=== PATIENT | male | born 1940 | race Caucasian/White ===

== ENCOUNTER → 2019-02-09 | Outpatient (CLI) | payer MEDICARE, OTHER ==
[~2019-02-09] MED LIST: ASPI81EC PO; Adult Low Dose81 MG PO; Bystolic5 MG PO; DUTA.5 PO; EZET10 PO; FISH1000 PO; HYDR1TAB94 PO; LISHYD1012 PO; LISI20 PO; METF850 PO; NEBI5 PO; OMEP20ER PO; OMEPRAZOLE MAGN20 MG PO; PIOG15 PO; PRAVASTATIN PO; Pravastatin Sod40 MG PO; SAW PALMENTO PO; SULTRIDS PO; Saw Palmetto80 MG PO; TAMS.4ER PO; UBID10 PO; VITAMIN D PO; Venlafaxine HCl75 MG PO; Vitamin D2000 UNIT PO
== END | disposition home or self-care (01) ==
LOC: LAB 12:53 → LAB SHORT 12:53
DX: N39.0 Urinary tract infection, site not specified (principal)
CPT/HCPCS: 87077; 87086; 87186

== ENCOUNTER → 2019-06-10 | Outpatient (CLI) | payer MEDICARE, OTHER ==
[2019-06-12 18:06] LABS: LEAD/CREAT. RATIO 4 (0-49)
[2019-06-15 13:07] LABS: M-SPIKE, % Not Observed % (Not Observed); PROTEIN,TOTAL,URINE 6.6 mg/dL (Not Estab.)
== END | disposition home or self-care (01) ==
LOC: OLS 04:00 → LAB SHORT 04:00 → LAB FUT 06-02 12:55
PROVIDERS: Psychiatry & Neurology Neurology
DX: G62.9 Polyneuropathy, unspecified (principal)
CPT/HCPCS: 81050; 82175; 82570; 83655; 83825; 84166; 86335

== ENCOUNTER → 2019-10-01 | Outpatient (CLI) | payer MEDICARE, OTHER | END | disposition home or self-care (01) | LOC: PLD 14:33 → LAB SHORT 14:33 | DX: L82.1 Other seborrheic keratosis (principal) | CPT/HCPCS: 88305 ==

== ENCOUNTER 2020-01-27 12:10 | Inpatient (IN) | payer MEDICARE, OTHER ==
[~2020-01-27] VITALS: Ht 177.8 cm; Wt 103.6 kg
[~2020-01-27 12:10] MED LIST changes: +Glucophage PO
[2020-01-27 12:56] LABS: BASOPHILS ABSOLUTE AUTO 0.04 K/mm3 (0.00-0.23); BASOPHILS PERCENT AUTO 1 % (0-2); EOSINOPHILS ABSOLUTE AUTO 0.04 K/mm3 (0.00-0.68); EOSINOPHILS PERCENT AUTO 1 % (0-6); Hematocrit 39.2 % (37.0-53.0); Hemoglobin 12.2 g/dL (13.5-17.5); IMMATURE GRAN ABSOLUTE AUTO 0.03 K/mm3 (0.00-0.10); IMMATURE GRAN PERCENT AUTO 0 % (0-1); LYMPHOCYTES ABSOLUTE AUTO 1.74 K/mm3 (0.84-5.20); LYMPHOCYTES PERCENT AUTO 20 % (21-46); MONOCYTES ABSOLUTE AUTO 0.87 K/mm3 (0.16-1.47); MONOCYTES PERCENT AUTO 10 % (4-13); Mean Corpuscular HGB 30.2 pg (26.0-34.0); Mean Corpuscular HGB Conc 31.1 g/dL (31.5-36.5); Mean Corpuscular Volume 97 fL (80-100); Mean Platelet Volume 11.6 fL (9.1-12.4); NEUTROPHILS ABSOLUTE AUTO 5.91 K/mm3 (1.96-9.15); NEUTROPHILS PERCENT AUTO 68 % (41-73); Platelet Count 224 K/mm3 (150-400); RDW Coefficient Variation 18.4 % (11.7-14.2); RDW Standard Deviation 65.7 fL (35.1-46.3); Red Blood Cell Count 4.04 M/mm3 (4.30-5.90); White Blood Cell Count 8.63 K/mm3 (4.00-11.30)
[2020-01-27 13:17] LABS: Alanine Aminotransfer (ALT/SGP 21 U/L (12-78); Albumin, Blood 3.6 g/dL (3.4-5.0); Albumin/Globulin Ratio 0.9 (0.8-1.8); Alk Phos 67 U/L (50-136); Anion Gap 7 mmol/L (6-16); Aspartate Aminotrans (AST/SGOT 11 U/L (12-37); Bilirubin, Total 1.4 mg/dL (0.1-1.0); Blood Urea Nitrogen 30 mg/dL (8-24); Bun/Creatinine Ratio 28.8 (12.0-20.0); CO2, Blood 23 mmol/L (21-32); Calcium, Blood 8.9 mg/dL (8.5-10.1); Chloride, Blood 107 mmol/L (98-108); Creatinine, Blood 1.04 mg/dL (0.60-1.20); Globulin, Blood 3.8 g/dL (2.2-4.0); Glomerular Filtration Rate >60 (60-); Glucose, Blood 110 mg/dL (70-99); Potassium, Blood 4.6 mmol/L (3.5-5.5); Sodium, Blood 137 mmol/L (136-145); Total Protein, Blood 7.4 g/dL (6.4-8.2); Troponin I 0.211 ng/mL (0.000-0.040)
[2020-01-27] MEDS ORDERED: ASPI325EC PO (14:04)
[2020-01-27] MEDS ORDERED: GLIM4 PO (14:04)
[2020-01-27] MEDS ORDERED: POTASSIUM PO (14:05)
[2020-01-27] MEDS ORDERED: FURO40 PO (14:05)
[2020-01-27] MEDS ORDERED: COQ-10100 MG PO (14:06)
[2020-01-27] MEDS ORDERED: GINKGO BILOBA120 MG PO (14:12)
[2020-01-27] MEDS ORDERED: GLUCOSAMINE PO (14:13)
[2020-01-27] MEDS ORDERED: Saw Palmetto160 MG PO (14:14)
[2020-01-27] MEDS ORDERED: PIOG15 PO (14:14)
[2020-01-27] MEDS ORDERED: Glucophage 850850 MG PO ×2 (15:30→15:31)
--- NOTE | 2020-01-27 18:49 | NUR ---
SHIFT SUMMARY: PATIENT ARRIVED AT 1708 FROM ED. A&O X 4, PLEASANT. HAS PATRICK AND TACHYPNEIC AT REST, 95% ON RA. EDUCATED PT ABOUT CALL LIGHT, RAPID RESPONSE, NURSE ROUNDING, BEDSIDE REPORT, FALL PRECAUTIONS. VSS, DENIES PAIN. PLAN IS CARDIAC ECHO TOMORROW, DIURESIS.
--- NOTE | 2020-01-27 21:30 | NUR ---
HOSPITALIST CONTACT: CALL TO HOSPITALISTELENI DUE TO PT HEART RHYTHM CHANGES. PER TELE RUBY ON RAILS ENGINEER, PT'S UNDERLYING RHYTHM IS 1ST DEGREE HB. 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 RATE AVERAGES 60-70S BUT DROPPED TO 42 DURING THE 2ND DEGREE TYPE 1 RHYTHM. PT REPORTS FEELING INTERMITTENTLY SOB. RECEIVED ORDER FOR 12 LEAD EKG.
[2020-01-27 21:54] LABS: Anion Gap 8 mmol/L (6-16); Blood Urea Nitrogen 33 mg/dL (8-24); Bun/Creatinine Ratio 28.9 (12.0-20.0); CO2, Blood 25 mmol/L (21-32); Calcium, Blood 8.9 mg/dL (8.5-10.1); Chloride, Blood 107 mmol/L (98-108); Creatinine, Blood 1.14 mg/dL (0.60-1.20); Glomerular Filtration Rate >60 (60-); Glucose, Blood 129 mg/dL (70-99); Magnesium, Blood 1.7 mg/dL (1.6-2.4); Potassium, Blood 4.1 mmol/L (3.5-5.5); Sodium, Blood 140 mmol/L (136-145)
--- NOTE | 2020-01-28 01:49 | NUR ---
CALL TO HOSPITALIST: PT HR DROPPING TO LOW 30'S FOR 15-20 SECOND INCREMENTS PER TELE ODD JOB WORKER. PT HAS REMAINED ASLEEP DURING THESE EPISODES. INFORMED DR. WADE OF THIS INFO, STATES TO USE PRN ATROPINE ONLY IF PT PULSE IS <35 AND HE WAKES UP W/SYMPTOMS. WILL CONT TO MONITOR.
[2020-01-28 06:28] LABS: BASOPHILS ABSOLUTE AUTO 0.04 K/mm3 (0.00-0.23); BASOPHILS PERCENT AUTO 1 % (0-2); EOSINOPHILS ABSOLUTE AUTO 0.05 K/mm3 (0.00-0.68); EOSINOPHILS PERCENT AUTO 1 % (0-6); Hematocrit 39.5 % (37.0-53.0); IMMATURE GRAN ABSOLUTE AUTO 0.03 K/mm3 (0.00-0.10); IMMATURE GRAN PERCENT AUTO 0 % (0-1); LYMPHOCYTES ABSOLUTE AUTO 1.65 K/mm3 (0.84-5.20); LYMPHOCYTES PERCENT AUTO 20 % (21-46); MONOCYTES ABSOLUTE AUTO 0.95 K/mm3 (0.16-1.47); MONOCYTES PERCENT AUTO 12 % (4-13); Mean Corpuscular HGB 29.6 pg (26.0-34.0); Mean Corpuscular HGB Conc 30.4 g/dL (31.5-36.5); Mean Corpuscular Volume 97 fL (80-100); Mean Platelet Volume 11.7 fL (9.1-12.4); NEUTROPHILS ABSOLUTE AUTO 5.38 K/mm3 (1.96-9.15); NEUTROPHILS PERCENT AUTO 66 % (41-73); Platelet Count 198 K/mm3 (150-400); RDW Coefficient Variation 18.5 % (11.7-14.2); RDW Standard Deviation 66.2 fL (35.1-46.3); Red Blood Cell Count 4.06 M/mm3 (4.30-5.90)
--- NOTE | 2020-01-28 06:36 | NUR ---
SHIFT SUMMARY: AAOX4. COMMUNICATING NEEDS. CALLS FOR ASSIST. STANDS AT BEDSIDE VOID. EXERTIONAL DYSPNEA. LSCTA W/DIM BASES. NO COUGH. PT WOKE UP DURING THE NIGHT FEELING VERY SOB, CALL PLACED TO TELE ADOLESCENT SPECIALIST WHO REPORTED NO CHANGES IN PT RHYTHM AT THE TIME OR LEADING UP TO EVENT. 02 INCREASED TO 3L. PT REPORTS SOB FEELS IMPROVED. HR HAS REMAINED IN THE 50S FOR MUCH OF THE NIGHT. PT WEARING PACER PADS PROACTIVELY. +4 BLE EDEMA. DENIES CHEST PAIN. WILL CONT TO MONITOR.
[2020-01-28 07:04] LABS: Anion Gap 8 mmol/L (6-16); Blood Urea Nitrogen 33 mg/dL (8-24); Bun/Creatinine Ratio 29.5 (12.0-20.0); CO2, Blood 24 mmol/L (21-32); Chloride, Blood 108 mmol/L (98-108); Creatinine, Blood 1.12 mg/dL (0.60-1.20); Glomerular Filtration Rate >60 (60-); Glucose, Blood 110 mg/dL (70-99); Potassium, Blood 4.2 mmol/L (3.5-5.5); Sodium, Blood 140 mmol/L (136-145)
--- NOTE | 2020-01-28 13:04 | NUR ---
Echocardiogram completed.
--- NOTE | 2020-01-28 15:35 | NUR ---
Spiritual care visit conducted. Patient is sitting on a chair and alert. Patient's spouse, Sri, is bedside. Patient tells me about his medical history, the of his former spouse and aliya patient has his current . Patient tells me about his Spiritism Reanna background and about his plan of care moving forward. I listen empathically, normalize patient's experience and provide companionship and prayer. Patient responds well and shows signs of an elevated mood. I will continue to remain available to patient and family.
--- NOTE | 2020-01-28 17:24 | NUR ---
SHIFT SUMMARY PATIENT DENIES PAIN AND NAUSEA. PATIENT HAS BECOME LESS DYSPNEIC OVER THE COURSE OF SHIFT. REPORTS NO SHORTNESS OF BREATH THIS EVENING. PATIENT MAINTAINING OXYGEN SATURATION ABOVE PATIENT 95% ON 2L NC. PATIENT WORKED WITH PT, UP SBA W/FWW. VISITED TODAY. ECHO DONE TODAY. UP IN CHAIR FOR MEALS. CALL LIGHT IN REACH.
[2020-01-29 06:29] LABS: Bun/Creatinine Ratio 26.6 (12.0-20.0); Calcium, Blood 9.3 mg/dL (8.5-10.1); Creatinine, Blood 1.24 mg/dL (0.60-1.20); Magnesium, Blood 1.7 mg/dL (1.6-2.4); Potassium, Blood 3.6 mmol/L (3.5-5.5)
--- NOTE | 2020-01-29 07:50 | NUR ---
SHIFT SUMMARY: VSS. AFEB. AA0X4. ABLE TO COMMUNICATE NEEDS. PT REPORTING IMPROVED SOB, 02 DECREASED FROM 3L TO 2L, PT PAULINE WELL. CONT W/EXERTIONAL DYSPNEA. BREATHING AT REST IMPROVED, REGULAR, NON-LABORED. 3+ PITTING EDEMA TO BLE. ENCOURAGED ELEVATION OF LE. PER TELE TOOL DISPATCHER: 2ND DEGREE HB TYPE 1, PVC'S, HEART RATE 59.
--- NOTE | 2020-01-29 17:17 | NUR ---
SHIFT SUMMARY PATIENT DENIES PAIN, NAUSEA, AND SHORTNESS OF BREATH. PATIENT UP SBA W/FWW. WALKED IN HALLWAY WITH PT TODAY. UP IN CHAIR MOST OF SHIFT. ENCOURAGED TO ELEVATE LEGS. NPO AT MIDNIGHT FOR CARDIAC CATHETERIZATION. CALL LIGHT IN REACH
--- NOTE | 2020-01-30 03:37 | NUR ---
SHIFT SUMMARY PATIENT HAD NO ACUTE CHANGES OBSERVED. AXOX 3 AND SBA W/FWW TO BSC. USES URINAL AT BEDSIDE. PIV REMAINS INTACT. BEVELER REPORTS NSR 82 W/1ST DEGREE HB AND BBB. ON 2L O2 NC. TAKES MEDICATION WHOLE X TWO AT A TIME. VSS/AFEBRILE. DENIES PAIN, SOB, AND N/V. NPO>MIDNIGHT FOR CARDIAC CATHERIZATION. CALL LIGHT IN REACH. BED IN LOWEST POSITION. WILL CONTINUE TO MONITOR UNTIL DAY SHIFT NURSE ASSUMES CARE.
[2020-01-30 06:17] LABS: Anion Gap 9 mmol/L (6-16); Blood Urea Nitrogen 34 mg/dL (8-24); Bun/Creatinine Ratio 28.6 (12.0-20.0); CO2, Blood 30 mmol/L (21-32); Calcium, Blood 9.4 mg/dL (8.5-10.1); Chloride, Blood 96 mmol/L (98-108); Creatinine, Blood 1.19 mg/dL (0.60-1.20); Glomerular Filtration Rate >60 (60-); Glucose, Blood 113 mg/dL (70-99); Magnesium, Blood 1.7 mg/dL (1.6-2.4); Potassium, Blood 3.7 mmol/L (3.5-5.5); Sodium, Blood 135 mmol/L (136-145)
--- NOTE | 2020-01-30 10:58 | NUR ---
ALERT. ORIENTED. DENIES PAIN THIS A.M. NPO EXCEPT MEDS. LEFT FOR HOOP RIVETING MACHINE OPERATOR AT ABOUT 1051. IN W/C.
--- NOTE | 2020-01-30 13:30 | NUR ---
Patient arrived via gurney from [facility] from 327 post cath. He was ableto site at bedside post arrival to use urinal with 250 ml light jeanna urine. He has left Tr Band in place c/d/i and no signs of bleeding or hematoma. He also has clear op site to right brachial access that was removed. Patient called is and is having her come in. He is on RA and sats mid 90%'s on RA. He has no fluids infusing.
--- NOTE | 2020-01-30 13:47 | NUR ---
REPORT GIVEN TO OLGA LOPEZ
--- NOTE | 2020-01-30 17:30 | NUR ---
Tr Band is off and let air out over theh last few hours. Left TR band site C/D/I and no swelling or oozing. He is siting up in bed eating diner and at bedside. dr martinez and Dr Murray by to see patient and will be discharged in am and follow up with Dr magallanes and go for valve replacement and bypass and patient aware. He is mostly idependent in room . Ra and sats mid 90%'s and doing well.
[2020-01-31 05:11] LABS: Anion Gap 8 mmol/L (6-16); Blood Urea Nitrogen 30 mg/dL (8-24); Bun/Creatinine Ratio 26.3 (12.0-20.0); CO2, Blood 30 mmol/L (21-32); Calcium, Blood 9.1 mg/dL (8.5-10.1); Chloride, Blood 97 mmol/L (98-108); Creatinine, Blood 1.14 mg/dL (0.60-1.20); Glomerular Filtration Rate >60 (60-); Glucose, Blood 124 mg/dL (70-99); Magnesium, Blood 1.9 mg/dL (1.6-2.4); Potassium, Blood 3.9 mmol/L (3.5-5.5); Sodium, Blood 135 mmol/L (136-145)
--- NOTE | 2020-01-31 06:28 | NUR ---
SHIFT SUMMARY PATIENT PLEASENT AND COOPERATIVE THROUGHOUT THE NIGHT. PATIENT STATED THAT HE NAPPED ON AND OFF LAST NIGHT. PATIENT DENIED ANY PAIN PATIENT'S ACCESS SITES TO RIGHT BRACHIAL AND LEFT WRIST APPEAR TO BE UNCHANGED FROM INITIAL ASSESSMENT. PATIENT REPORTS HE IS READY TO GO HOME TODAY SO THAT HE CAN GET HIS VALVE REPLACEMENT PROCEDURE SCHEDULED. PATIENT CURRENTLY APPEARS TO BE ASLEEP. WILL CONTINUE TO MONITOR PATIENT AND REPORT TO ONCOMING RN.
[2020-01-31] MEDS ORDERED: MAGNESIUM OXID500 MG PO (10:58)
[2020-01-31] MEDS ORDERED: NITR.4SL SL (11:07)
[2020-01-31] MEDS ORDERED: FURO40 PO (11:09)
[2020-01-31] MEDS ORDERED: POTCHL20ER PO (11:09)
--- NOTE | 2020-01-31 13:31 | NUR ---
D/C TO HOME WITH . D/C INSTRUCTIONS PROVIDED AND EXPLAINED TO BOTH PT & HIS . THEY BOTH STATED UNDERSTANDING. RX CALLED TO [facility] PER PT REQUEST. IV D/C'D WNL, VSS, RESP MUNLABORED. PT IS ABLT TO AMBULATE GREATER THAN 50 FT W/O BECOMING SOB, DENIES CP. PT ENC TO F/ [facility] FOR ANY PROBLEMS OR CONCERNS.
[2020-02-09] MEDS ORDERED: CO Q10100 MG PO (15:59)
[2020-02-09] MEDS ORDERED: Flomax0.4 MG PO (15:59)
[2020-02-11] MEDS ORDERED: ASPI81CH PO (11:35)
[2020-02-11] MEDS ORDERED: ATOR80 PO (11:36)
[2020-02-11] MEDS ORDERED: FURO40 PO (11:36)
[2020-02-11] MEDS ORDERED: CLOP75 PO (11:37)
== END 2020-01-31 13:04 | disposition home or self-care (01) | DRG 287 ==
LOC: ER 12:10 → MEDS 15:43 → PCU 01-30 13:10
PROVIDERS: Nurse Practitioner Acute Care; Physician Assistant; ADMIT Internal Medicine
PROC: 4A023N6 Measurement of Cardiac Sampling and Pressure, Right Heart, Percutaneous Approach (ICD-10-PCS; principal; 2020-01-30)
PROC: B2111ZZ Fluoroscopy of Multiple Coronary Arteries using Low Osmolar Contrast (ICD-10-PCS; 2020-01-30)
PROC: 4A033BC Measurement of Arterial Pressure, Coronary, Percutaneous Approach (ICD-10-PCS; 2020-01-30)
PROC: 4A1239Z Monitoring of Cardiac Output, Percutaneous Approach (ICD-10-PCS; 2020-01-30)
PROC: B2121ZZ Fluoroscopy of Single Coronary Artery Bypass Graft using Low Osmolar Contrast (ICD-10-PCS; 2020-01-30)
DX: I11.0 Hypertensive heart disease with heart failure (principal); Z79.82 Long term (current) use of aspirin; I50.33 Acute on chronic diastolic (congestive) heart failure; E11.9 Type 2 diabetes mellitus without complications; Z79.84 Long term (current) use of oral hypoglycemic drugs; Z95.1 Presence of aortocoronary bypass graft; Z95.2 Presence of prosthetic heart valve; Z96.641 Presence of right artificial hip joint; Z96.652 Presence of left artificial knee joint; I44.1 Atrioventricular block, second degree; E78.5 Hyperlipidemia, unspecified; Z86.73 Personal history of transient ischemic attack (TIA), and cerebral infarction without residual deficits; N40.0 Benign prostatic hyperplasia without lower urinary tract symptoms; Z68.34 Body mass index [BMI] 34.0-34.9, adult; E66.9 Obesity, unspecified; I25.10 Atherosclerotic heart disease of native coronary artery without angina pectoris; I77.1 Stricture of artery; E87.6 Hypokalemia; E83.42 Hypomagnesemia
CPT/HCPCS: 36415; 71045; 71046; 76937; 80048; 80053; 82947; 83735; 83880; 84484; 85025; 85347; 93005; 93010; 93306; 93308; 93321; 93457; 93571; 96374; 97162; 97165; 97530; 97535; 99152; 99153; 99285-25; A9270; A9270-GY; C1769; C1887; C1894; J1644; J1650; J1815; J1940; J2250; J3010; J7030; Q9967

== ENCOUNTER 2020-02-09 10:00 | Inpatient (IN) | payer MEDICARE, OTHER ==
[~2020-02-09] VITALS: Ht 177.8 cm; Wt 105.6 kg
[~2020-02-09 10:00] MED LIST changes: +ASPI325EC PO; +COQ-10100 MG PO; +FURO40 PO; +GINKGO BILOBA120 MG PO; +GLIM4 PO; +GLUCOSAMINE PO; +Glucophage 850850 MG PO; +MAGNESIUM OXID500 MG PO; +NITR.4SL SL; +POTASSIUM PO; +POTCHL20ER PO; +Saw Palmetto160 MG PO
[2020-02-09 10:50] LABS: BASOPHILS ABSOLUTE AUTO 0.03 K/mm3 (0.00-0.23); BASOPHILS PERCENT AUTO 0 % (0-2); EOSINOPHILS ABSOLUTE AUTO 0.02 K/mm3 (0.00-0.68); EOSINOPHILS PERCENT AUTO 0 % (0-6); Hematocrit 39.9 % (37.0-53.0); Hemoglobin 12.8 g/dL (13.5-17.5); IMMATURE GRAN ABSOLUTE AUTO 0.02 K/mm3 (0.00-0.10); IMMATURE GRAN PERCENT AUTO 0 % (0-1); LYMPHOCYTES ABSOLUTE AUTO 1.62 K/mm3 (0.84-5.20); LYMPHOCYTES PERCENT AUTO 22 % (21-46); MONOCYTES ABSOLUTE AUTO 0.59 K/mm3 (0.16-1.47); MONOCYTES PERCENT AUTO 8 % (4-13); Mean Corpuscular HGB 31.3 pg (26.0-34.0); Mean Corpuscular HGB Conc 32.1 g/dL (31.5-36.5); Mean Corpuscular Volume 98 fL (80-100); NEUTROPHILS ABSOLUTE AUTO 5.26 K/mm3 (1.96-9.15); NEUTROPHILS PERCENT AUTO 70 % (41-73); Platelet Count 196 K/mm3 (150-400); RDW Standard Deviation 64.3 fL (35.1-46.3); Red Blood Cell Count 4.09 M/mm3 (4.30-5.90); White Blood Cell Count 7.54 K/mm3 (4.00-11.30)
[2020-02-09 11:10] LABS: Albumin, Blood 3.7 g/dL (3.4-5.0); Albumin/Globulin Ratio 0.9 (0.8-1.8); Bilirubin, Total 1.3 mg/dL (0.1-1.0); Bun/Creatinine Ratio 19.9 (12.0-20.0); Calcium, Blood 8.8 mg/dL (8.5-10.1); Creatinine, Blood 1.36 mg/dL (0.60-1.20); Globulin, Blood 3.9 g/dL (2.2-4.0); Potassium, Blood 4.8 mmol/L (3.5-5.5); Total Protein, Blood 7.6 g/dL (6.4-8.2)
[2020-02-09 11:22] LABS: Troponin I 1.44 ng/mL (0.000-0.040)
[2020-02-09 14:03] LABS: International Normalized Ratio 1.05; Prothrombin Time Results 11.2 Sec (9.7-11.5)
--- NOTE | 2020-02-09 15:14 | NUR ---
Echocardiogram completed.
[2020-02-09] MEDS ORDERED: CO Q10100 MG PO ×2 (15:59)
[2020-02-09] MEDS ORDERED: Flomax0.4 MG PO ×2 (15:59)
[2020-02-09 17:14] LABS: Source, Urine Clean Catch
[2020-02-09 17:17] LABS: Appearance, Urine Clear (Clear); Bilirubin, Urine Neg (Neg); Blood, Urine Neg (Neg); Color, Urine Yellow (P-Yellow); Glucose Qualitative, Urine Neg (Neg); Ketones, Urine 1+ (Neg); Leukocyte Esterase, Urine Neg (Neg); Nitrite, Urine Neg (Neg); Protein, Urine 1+ (Neg); Urobilinogen, Urine NORM (Normal)
--- NOTE | 2020-02-09 19:14 | NUR ---
ADMIT NOTE. RECEIVED REPORT FROM JOHN APPLE IN ED. PT TO ROOM AT 1535; SBA TO BED. PT ORIENTED TO ROOM AND CALL LIGHT; EDUCATED ON FALL RISK. PT REPORTS FEELING WEAK AND DIZZINES THIS AM AND HAVING NO URINE OUTPUT OVERNIGHT AFTER TAKING LASIX. PT A&Ox4; CALM AND COOPERATIVE WITH CARE. PT SBA TO BATHROOM. PT DENIES PAIN, CHEST PAIN/PRESSURE, NUMBNESS/TINGLING, NAUSEA, OR DIZZINESS. PT STARTED ON HEPARIN GTT PER ORDERS. CLARIFIED ORDER FOR NPO WITH DR DALEY, NEW ORDER TO FEED PT AND HOLD NPO AT MIDNIGHT FOR PROCEDURE TOMORROW. VSS. NO OTHER ACUTE CHANGES NOTED DURING SHIFT. REPORT GIVEN TO ONCOMING RN.
[2020-02-10 03:42] LABS: BASOPHILS ABSOLUTE AUTO 0.03 K/mm3 (0.00-0.23); BASOPHILS PERCENT AUTO 0 % (0-2); EOSINOPHILS ABSOLUTE AUTO 0.06 K/mm3 (0.00-0.68); EOSINOPHILS PERCENT AUTO 1 % (0-6); Hematocrit 37.1 % (37.0-53.0); Hemoglobin 11.7 g/dL (13.5-17.5); IMMATURE GRAN ABSOLUTE AUTO 0.03 K/mm3 (0.00-0.10); IMMATURE GRAN PERCENT AUTO 0 % (0-1); LYMPHOCYTES ABSOLUTE AUTO 2.12 K/mm3 (0.84-5.20); LYMPHOCYTES PERCENT AUTO 25 % (21-46); MONOCYTES PERCENT AUTO 13 % (4-13); Mean Corpuscular HGB 30.6 pg (26.0-34.0); Mean Corpuscular HGB Conc 31.5 g/dL (31.5-36.5); Mean Corpuscular Volume 97 fL (80-100); Mean Platelet Volume 12.2 fL (9.1-12.4); NEUTROPHILS PERCENT AUTO 61 % (41-73); Platelet Count 184 K/mm3 (150-400); RDW Standard Deviation 63.7 fL (35.1-46.3); Red Blood Cell Count 3.82 M/mm3 (4.30-5.90); White Blood Cell Count 8.54 K/mm3 (4.00-11.30)
[2020-02-10 04:03] LABS: Anion Gap 8 mmol/L (6-16); Blood Urea Nitrogen 28 mg/dL (8-24); Bun/Creatinine Ratio 25.5 (12.0-20.0); CO2, Blood 23 mmol/L (21-32); Calcium, Blood 8.6 mg/dL (8.5-10.1); Chloride, Blood 99 mmol/L (98-108); Glomerular Filtration Rate >60 (60-); Glucose, Blood 109 mg/dL (70-99); Potassium, Blood 4.1 mmol/L (3.5-5.5); Sodium, Blood 130 mmol/L (136-145)
--- NOTE | 2020-02-10 06:04 | NUR ---
patient initially admitted for weakness dizziness and decreased urine output. Patient's urine output improved and now is within normal limits. Current diagnosis of NSTEMI. Patient is on heparin dril with possible plans for PCI today. Patient vital signs stable, no complaints of chest pain, chest pressure, shortness of breath. No acute events overnight.
--- NOTE | 2020-02-10 07:30 | NUR ---
ASSUMPTION OF CARE PT SITTING UP IN CHAIR THIS AM; A&O; CALM AND COOPERATIVE WITH CARE. NO DISTRESS NOTED; DENIES PAIN, CHEST PAIN/PRESSURE, SOB AND NAUSEA. VSS. PT TAKEN TO OIL FIELD TECHNICIAN AT 0726; SHIFT ASSESSMENT NOT COMPLETED PRIOR TO LEAVING FOR OIL FIELD TECHNICIAN.
--- NOTE | 2020-02-10 10:23 | NUR ---
Transfer/Warren of Care: Patient arrived to unit at approx 0959hr, from labour market economist, accompanied by labour market economist RN. Patient alert and oriented x4, denies pain, discomfort, chest pressure, dyspnea, or SOB. VSS, spO2-98% on RA, appears calm and comfortable. Rt femoral sheath in place, dressing C/D/I, no s/s of bleeding or hematoma. Next PTT scheduled for 1100hr, plan to remove sheath if PTT less than 40 and systolic BP remains below 170. Patient lying flat/supine in bed. Instructed to remain lying flat and to not lift head or right leg. Peripheral IV to lt arm in place, patent and intact. Using urinal in bed with assistance for placement, without difficulty. Urine light yellow and clear. Call light in reach, makes needs known. Dr. Long to room shortly after arrival to unit. Received instructions from Dr. Long that she would be placing new orders r/t diet, d/c of heparin gtt, new medications, etc. Awaiting new orders at this time. Will continue to monitor.
--- NOTE | 2020-02-10 13:08 | NUR ---
Spiritual care visit conducted. Patient is lying in bed and alert. Patient tells me about his recent stent installation and about his upcoming heart valve replacement. Patient talks about the of his prior , about the wonderful attributes of his current and about his many surgeries. Patient also explains about his restoration tradition (Sabianist) and patient's spouse, Sri's, restoration tradition (Yazidi) and how they honor each other and support each other's beliefs. I listen empathically and provide companionship and prayer. I will continue to remain available to patient and family.
--- NOTE | 2020-02-10 18:03 | NUR ---
Shift Summary: No significant changes throughout shift. Sheath to rt femoral access site removed at 1530hr, following repeat PTT lab draws, last value below 40. Direct pressure held to rt femoral access site for 20min following removal of sheath. Site remains stable, no s/s of bleeding or hematoma noted. Distal limb to access site remains WNL. VSS, patient continues to deny pain, discomfort, SOB, or dyspnea. Tolerating PO fluids and food without difficulty. Call light in reach, makes needs known. Will continue to monitor until report to NOC shift RN.
--- NOTE | 2020-02-10 19:38 | NUR ---
ASSUMED PT CARE FROM JOHN ULLOA AT 1915 PT RESTING IN BED. ALERT AND ORIENTED AND ABLE TO MAKE NEEDS KNOWN. REQUESTED TO USE THE BATHROOM. PT WANTED TO SIT ON THE BSC INSTEAD OF USING THE URINAL; TWO PERSON ASSIST FOR SAFETY. PT IS VERY WEAK AND REQUIRES FREQUENT VERBAL CUES. RIGHT FEMORAL SITE IS SOFT, NON-TENDER WITH NO OOZING OR HEMATOMA NOTED. VSS, SEE FLOWSHEET. 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 DENIES CHEST PAIN AT THIS TIME. PT REQUESTED TO SIT UP IN CHAIR D/T BED BEING UNCOMFORTABLE. ASSISTED TO CHAIR. CALLED FOR AN UPDATE AND THEN WAS TRANSFERRED INTO PT'S ROOM. AWARE THAT PT MAY TRANSFER TO MEDICAL FLOOR THIS SHIFT AND DOESN'T REQUEST A PHONE CALL IF THAT HAPPENS. CALL LIGHT IS WITHIN REACH; PT ABLE TO MAKE NEEDS KNOWN AT THIS TIME.
--- NOTE | 2020-02-11 04:21 | NUR ---
END OF SHIFT SUMMARY NO SIGNIFICANT CHANGES T/O SHIFT. PT HAS REMAINED ALERT AND ORIENTED AND ABLE TO MAKE NEEDS KNOWN. DENIES CHEST PAIN. VSS, SEE FLOWSHEET. RIGHT FEMORAL SITE HAS REMAINED STABLE WITH NO OOZING OR SIGNS OF HEMATOMA NOTED. SURROUNDING TISSUE IS RED, WHICH APPEARS RELATED TO IRRITATION SKIN IS COOL TO THE TOUCH AND NOT HOT. DISTAL PULSES REMAIN PALPABLE. PT HAS BEEN UP TO VOID MULTIPLE TIMES T/O NIGHT, WELL CHANGING FROM BED TO CHAIR AND BACK TO BED. CALL LIGHT WITHIN REACH AND PT IS ABLE TO MAKE NEEDS KNOWN. WILL CONTINUE TO MONITOR UNTIL REPORT IS HANDED OFF TO ONCOMING RN.
--- NOTE | 2020-02-11 08:44 | NUR ---
Bland of Care: Care assumed at 0700hr. Patient alert and oriented x4. Transferred to recliner this morning for breakfast, stand-by assist without difficulty. Denies pain, discomfort, SOB, or dyspnea. VSS, spO2-96-98% on RA. Rt femoral access site wnl, no s/s of bleeding or hematoma noted. Distal limb to arterial access site wnl. Peripheral IV x1 patent and intact. Good apatite this morning, tolerating PO fluids and food without difficulty. Dr. Nugent in to see patient early this shift. Received verbal permission to D/c patient home, awaiting arrival of hospitalist at this time. Call light in reach, makes needs known. Will continue to monitor.
[2020-02-11] MEDS ORDERED: ASPI81CH PO ×2 (11:35)
[2020-02-11] MEDS ORDERED: FURO40 PO ×2 (11:36)
[2020-02-11] MEDS ORDERED: ATOR80 PO ×2 (11:36)
[2020-02-11] MEDS ORDERED: CLOP75 PO ×2 (11:37)
--- NOTE | 2020-02-11 13:45 | NUR ---
Discharge: Received orders per Dr. Thompson to discharge patient home. discharge instructions and medications reviewed with patient and his . Verbalized understanding of instructions, all questions answered to patient's satisfaction. Belongings sent home with patient. Transferred via w/c to 's vehicle without difficulty. Left facility at 1337hr. IV removed to lt forearm before leaving unit.
== END 2020-02-11 13:40 | disposition home or self-care (01) | DRG 247 ==
LOC: ER 10:00 → PCU 12:43 → ICUE 02-10 09:31
PROVIDERS: Physician Assistant; ADMIT Hospitalist
PROC: B2111ZZ Fluoroscopy of Multiple Coronary Arteries using Low Osmolar Contrast (ICD-10-PCS; principal; 2020-02-10)
PROC: 4A023N7 Measurement of Cardiac Sampling and Pressure, Left Heart, Percutaneous Approach (ICD-10-PCS; 2020-02-10)
PROC: 027035Z Dilation of Coronary Artery, One Artery with Two Drug-eluting Intraluminal Devices, Percutaneous Approach (ICD-10-PCS; 2020-02-10)
PROC: B240ZZ3 Ultrasonography of Single Coronary Artery, Intravascular (ICD-10-PCS; 2020-02-10)
DX: I21.4 Non-ST elevation (NSTEMI) myocardial infarction (principal); I50.32 Chronic diastolic (congestive) heart failure; N17.9 Acute kidney failure, unspecified; Z79.82 Long term (current) use of aspirin; Z79.84 Long term (current) use of oral hypoglycemic drugs; I35.0 Nonrheumatic aortic (valve) stenosis; Z96.651 Presence of right artificial knee joint; Z96.641 Presence of right artificial hip joint; Z95.1 Presence of aortocoronary bypass graft; I25.10 Atherosclerotic heart disease of native coronary artery without angina pectoris; I95.9 Hypotension, unspecified; I44.30 Unspecified atrioventricular block; E66.9 Obesity, unspecified; Z68.31 Body mass index [BMI] 31.0-31.9, adult; I77.1 Stricture of artery
CPT/HCPCS: 36415; 51798; 71046; 76937; 80048; 80053; 82947; 83735; 83880; 84484; 85025; 85347; 85610; 85730; 92921; 92978; 93005; 93010; 93308; 93321; 93454; 96360; 99152; 99153; 99285-25; A9270-GY; C1725; C1753; C1769; C1874; C1887; C9600; J1644; J1940; J2250; J3010; J7030; Q9967

== ENCOUNTER 2020-02-13 12:32 | Emergency (ER) | payer MEDICARE, OTHER ==
[~2020-02-13] VITALS: Ht 177.8 cm; Wt 99.3 kg
[~2020-02-13 12:32] MED LIST changes: +ASPI81CH PO; +ATOR80 PO; +CLOP75 PO; +CO Q10100 MG PO; +Flomax0.4 MG PO
[2020-02-13 13:04] LABS: BASOPHILS ABSOLUTE AUTO 0.03 K/mm3 (0.00-0.23); BASOPHILS PERCENT AUTO 0 % (0-2); EOSINOPHILS ABSOLUTE AUTO 0.07 K/mm3 (0.00-0.68); EOSINOPHILS PERCENT AUTO 1 % (0-6); Hematocrit 39.8 % (37.0-53.0); Hemoglobin 12.4 g/dL (13.5-17.5); IMMATURE GRAN ABSOLUTE AUTO 0.02 K/mm3 (0.00-0.10); IMMATURE GRAN PERCENT AUTO 0 % (0-1); LYMPHOCYTES ABSOLUTE AUTO 1.73 K/mm3 (0.84-5.20); LYMPHOCYTES PERCENT AUTO 23 % (21-46); MONOCYTES ABSOLUTE AUTO 0.69 K/mm3 (0.16-1.47); MONOCYTES PERCENT AUTO 9 % (4-13); Mean Corpuscular HGB 30.6 pg (26.0-34.0); Mean Corpuscular HGB Conc 31.2 g/dL (31.5-36.5); Mean Corpuscular Volume 98 fL (80-100); Mean Platelet Volume 12.3 fL (9.1-12.4); NEUTROPHILS ABSOLUTE AUTO 5.12 K/mm3 (1.96-9.15); NEUTROPHILS PERCENT AUTO 67 % (41-73); Platelet Count 209 K/mm3 (150-400); RDW Coefficient Variation 17.8 % (11.7-14.2); RDW Standard Deviation 63.5 fL (35.1-46.3); Red Blood Cell Count 4.05 M/mm3 (4.30-5.90); White Blood Cell Count 7.66 K/mm3 (4.00-11.30)
[2020-02-13 13:16] LABS: International Normalized Ratio 1.06; Prothrombin Time Results 11.3 Sec (9.7-11.5)
[2020-02-13 13:23] LABS: Alanine Aminotransfer (ALT/SGP 30 U/L (12-78); Albumin, Blood 3.6 g/dL (3.4-5.0); Albumin/Globulin Ratio 0.9 (0.8-1.8); Alk Phos 86 U/L (50-136); Anion Gap 7 mmol/L (6-16); Aspartate Aminotrans (AST/SGOT 26 U/L (12-37); Bilirubin, Total 1.3 mg/dL (0.1-1.0); Blood Urea Nitrogen 18 mg/dL (8-24); Bun/Creatinine Ratio 18.5 (12.0-20.0); CO2, Blood 24 mmol/L (21-32); Chloride, Blood 105 mmol/L (98-108); Creatinine, Blood 0.97 mg/dL (0.60-1.20); Globulin, Blood 3.9 g/dL (2.2-4.0); Glomerular Filtration Rate >60 (60-); Glucose, Blood 131 mg/dL (70-99); Potassium, Blood 4.3 mmol/L (3.5-5.5); Sodium, Blood 136 mmol/L (136-145); Total Protein, Blood 7.5 g/dL (6.4-8.2)
== END 2020-02-13 15:26 | disposition home or self-care (01) ==
LOC: ER 12:32
PROVIDERS: Emergency Medicine
DX: R04.0 Epistaxis (principal); Z79.82 Long term (current) use of aspirin; Z79.899 Other long term (current) drug therapy; Z79.84 Long term (current) use of oral hypoglycemic drugs; I10 Essential (primary) hypertension; E11.9 Type 2 diabetes mellitus without complications; I25.810 Atherosclerosis of coronary artery bypass graft(s) without angina pectoris; E78.5 Hyperlipidemia, unspecified
CPT/HCPCS: 30901; 36415; 80053; 85025; 85610; 99283-25

== ENCOUNTER 2020-02-20 21:24 | Inpatient (IN) | payer MEDICARE, OTHER ==
[~2020-02-20] VITALS: Ht 177.8 cm; Wt 100.4 kg
[2020-02-20 21:47] LABS: BASOPHILS ABSOLUTE AUTO 0.03 K/mm3 (0.00-0.23); BASOPHILS PERCENT AUTO 0 % (0-2); EOSINOPHILS ABSOLUTE AUTO 0.04 K/mm3 (0.00-0.68); EOSINOPHILS PERCENT AUTO 1 % (0-6); Hematocrit 36.3 % (37.0-53.0); Hemoglobin 11.5 g/dL (13.5-17.5); IMMATURE GRAN ABSOLUTE AUTO 0.02 K/mm3 (0.00-0.10); IMMATURE GRAN PERCENT AUTO 0 % (0-1); LYMPHOCYTES PERCENT AUTO 22 % (21-46); MONOCYTES PERCENT AUTO 9 % (4-13); Mean Corpuscular HGB Conc 31.7 g/dL (31.5-36.5); Mean Corpuscular Volume 98 fL (80-100); Mean Platelet Volume 11.7 fL (9.1-12.4); NEUTROPHILS ABSOLUTE AUTO 5.65 K/mm3 (1.96-9.15); NEUTROPHILS PERCENT AUTO 69 % (41-73); NRBC ABSOLUTE 0.02 K/mm3 (0.00-0.02); NRBC Auto 0.2 /100 WBC (0.0-0.2); Platelet Count 251 K/mm3 (150-400); RDW Coefficient Variation 18.1 % (11.7-14.2); RDW Standard Deviation 64.8 fL (35.1-46.3); Red Blood Cell Count 3.71 M/mm3 (4.30-5.90); White Blood Cell Count 8.24 K/mm3 (4.00-11.30)
[2020-02-20 22:20] LABS: Albumin, Blood 3.5 g/dL (3.4-5.0); Bilirubin, Total 1.1 mg/dL (0.1-1.0); Bun/Creatinine Ratio 20.1 (12.0-20.0); Calcium, Blood 8.6 mg/dL (8.5-10.1); Creatinine, Blood 1.74 mg/dL (0.60-1.20); Globulin, Blood 3.6 g/dL (2.2-4.0); Potassium, Blood 4.5 mmol/L (3.5-5.5); Total Protein, Blood 7.1 g/dL (6.4-8.2)
[2020-02-20 22:20] LABS: Base Excess Venous -6.3 mmol/L; Bicarbonate Venous 19.2 mmol/L (24.0-30.0); PCO2 Venous 37.1 mmHg (38-42); PO2 Venous 39.1 mmHg (38-42); pH Blood Venous 7.33 (7.34-7.37)
[2020-02-20 22:28] LABS: Troponin I 0.746 ng/mL (0.000-0.040)
[2020-02-20 23:18] LABS: Source, Urine Voided
[2020-02-20 23:20] LABS: Appearance, Urine Clear (Clear); Blood, Urine Neg (Neg); Color, Urine Amber (P-Yellow); Glucose Qualitative, Urine Neg (Neg); Ketones, Urine Neg (Neg); Leukocyte Esterase, Urine 2+ (Neg); Nitrite, Urine Neg (Neg); Protein, Urine 2+ (Neg); Specific Gravity, Urine 1.025 (1.003-1.022); Urobilinogen, Urine 1+ (Normal)
[2020-02-20 23:23] LABS: Bilirubin, Urine 1+ (Neg)
[2020-02-20 23:30] LABS: Amorphous Mod (0-Heavy); Bacteria Few /hpf; Red Blood Cells, Urine 0-2 /hpf (0-2); Squamous Epithelial Cells Few /hpf (Few); White Blood Cells, Urine 0-2 /hpf (0-5)
--- NOTE | 2020-02-21 02:00 | NUR ---
PT TO ICU [address] WITH ED RN @ 0115. PT ALERT AND ORIENTED, JOKING AND LAUGHING WITH STAFF, ANSWERING QUESTIONS APPROPRIATELY REGARDING HEALTH HISTORY. 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 O2 SATURATIONS>90% ON RA, LS CLEAR IN THE UPPERS WITH CRACKLES IN THE BASES. MONITOR SHOWS AFIB WITH BBB, HR 60'S-70'S, MANUAL BP SHOWS SBP 66, LEVO GTT @ 8mcg/min. DR WAYNE CALLED BY SYSTEMS PLANNER @ APPROX 0120 REGARDING PTS CURRENT BP AND LEVO GTT RATE, ORDER TO CONSULT ECHOCARDIOLOGIST, CONSULT CALLED TO DR PEDRO WHO AGREED TO COME IN AND PLACE CENTRAL LINE. DR PLATA TO ROOM @ APPROX 0125, PT REPORTS NAUSEA, EMESIS BAG PROVIDED, PT VOMITING, DR PLATA ORDERED 8MG ZOFRAN IV. PT THEN BECAME UNRESPONSIVE, UNABLE TO PALPATE PULSES. DAMARIS CORNEJO CALLED @ 0130 AND COMPRESSIONS INITIATED. PTS SPOUSE NOTIFIED @ [address] [facility] NURSING WINDOWS SERVER SUPPORT TECHNICIAN. PT INTUBATED @ [address] PEDRO ARRIVED TO ROOM @ 0145, CODE CONTINUES (SEE CODE BLUE SHEET FOR FULL REPORT) DR WAYEN SPOKE WITH PTS SPOUSE VIA PHONE, ADVISED DR WAYNE TO STOP COMPRESSIONS, PTS TOD 0154.
--- NOTE | 2020-02-21 03:12 | NUR ---
ICE PLACED ON EYES
== END 2020-02-21 01:54 ==
LOC: ER 21:24 → ICUW 23:50 → ER 02-21 00:59 → ICUW 02-21 00:59
PROVIDERS: Emergency Medicine; ADMIT Internal Medicine
PROC: 5A12012 Performance of Cardiac Output, Single, Manual (ICD-10-PCS; principal; 2020-02-21)
PROC: 0BH17EZ Insertion of Endotracheal Airway into Trachea, Via Natural or Artificial Opening (ICD-10-PCS; 2020-02-21)
DX: I35.0 Nonrheumatic aortic (valve) stenosis (principal); I21.4 Non-ST elevation (NSTEMI) myocardial infarction; G91.2 (Idiopathic) normal pressure hydrocephalus; I50.32 Chronic diastolic (congestive) heart failure; N17.9 Acute kidney failure, unspecified; R57.0 Cardiogenic shock; Z79.02 Long term (current) use of antithrombotics/antiplatelets; Z79.82 Long term (current) use of aspirin; Z79.84 Long term (current) use of oral hypoglycemic drugs; E11.9 Type 2 diabetes mellitus without complications; R57.1 Hypovolemic shock; I25.10 Atherosclerotic heart disease of native coronary artery without angina pectoris; Z95.3 Presence of xenogenic heart valve; Z95.1 Presence of aortocoronary bypass graft; E66.9 Obesity, unspecified; Z68.31 Body mass index [BMI] 31.0-31.9, adult; Z98.2 Presence of cerebrospinal fluid drainage device; I77.1 Stricture of artery; Z95.5 Presence of coronary angioplasty implant and graft; E78.5 Hyperlipidemia, unspecified; I11.0 Hypertensive heart disease with heart failure; R00.1 Bradycardia, unspecified
CPT/HCPCS: 31500; 31720; 36415; 51701; 51702; 51798; 71045; 80053; 81001; 82803; 83605; 83880; 84484; 85025; 85730; 87040; 93005; 93010; 96361; 96365; 96366; 96375; 99285-25; J1644; J2405; J7030; J7060